=== PATIENT | male | born 1960 | race Caucasian/White ===

== ENCOUNTER 2016-12-20 11:26 | Emergency (ER) | payer OTHER ==
[~2016-12-20] VITALS: Ht 172.7 cm; Wt 72.6 kg
--- NOTE | 2016-12-20 11:32 | NUR ---
DR PEREZ AT BEDSIDE FOR EVAL
[2016-12-20 11:39] VITALS: BP 141/79
--- NOTE | 2016-12-20 11:40 | NUR ---
SUPERVISOR TELEPHONE CLERKS AT BEDSIDE
== END 2016-12-20 12:33 | disposition home or self-care (01) ==
LOC: ER 11:30
DX: M79.644 Pain in right finger(s) (principal); I10 Essential (primary) hypertension; F17.200 Nicotine dependence, unspecified, uncomplicated
CPT/HCPCS: 29130; 73140; 99284; A4606; Z7610

== ENCOUNTER 2017-05-23 09:47 | Emergency (ER) | payer OTHER ==
[~2017-05-23] VITALS: Ht 182.9 cm; Wt 88.0 kg
--- NOTE | 2017-05-23 09:55 | NUR ---
PT TO ED DT ABDOMINAL CRAMPS, NO BM SINCE THURSDAY, 03/12, NAD NOTED, VSS, RESP EVEN AND UNLABORED, WAITING FOR MD VENTURA.
--- NOTE | 2017-05-23 10:45 | NUR ---
PT TO CTSCAN
[2017-05-23] MEDS ORDERED: ONDANSETRON HCL/PF 4 MG/2 ML VIAL ONE (10:46)
[2017-05-23] MEDS ORDERED: DICYCLOMINE HCL INJ 20 MG/2 ML AMPUL IM ONE ×2 (10:46→11:00)
[2017-05-23] MEDS ORDERED: ONDANSETRON HCL/PF 4 MG/2 ML VIAL IVP ONE (11:00)
[2017-05-23 11:08] LABS: BASOPHILS % (AUTO) 0.5 % (0.0-2.0); EOSINOPHILS # (AUTO) 0.2 /CMM (0.0-0.7); EOSINOPHILS % (AUTO) 1.9 % (0.0-6.0); HEMATOCRIT 45 % (39-51); HEMOGLOBIN 14.7 g/dL (13.5-17.5); LYMPHOCYTES # (AUTO) 3.8 /CMM (0.8-4.8); LYMPHOCYTES % (AUTO) 39.4 % (20.0-44.0); MEAN CORPUSCULAR HEMOGLOBIN 29 PG (26.0-33.0); MEAN CORPUSCULAR HGB CONC 33 g/dl (31.0-36.0); MEAN CORPUSCULAR VOLUME 87 fL (80-96); MONOCYTES # (AUTO) 0.7 /CMM (0.1-1.30); MONOCYTES % (AUTO) 7.7 % (2.0-12.0); NEUTROPHILS % (AUTO) 50.5 % (43.0-81.0); PLATELET COUNT (AUTO) 260 /CMM (150-450); RDW COEFFICIENT OF VARIATION 12.9 (11.5-15.0); RED BLOOD CELL COUNT(AUTO) 5.11 MIL/uL (4.5-6.0); WHITE BLOOD COUNT (AUTO) 9.7 K/uL (4.3-11.0)
[2017-05-23 11:16] LABS: CALCIUM, SERUM 8.7 mg/dL (8.5-10.1); CREATININE 0.9 mg/dL (0.6-1.3); POTASSIUM 4.2 mmol/L (3.5-5.1)
[2017-05-23 11:22] LABS: ALBUMIN 3.5 g/dL (3.4-5.0); BILIRUBIN,DIRECT 0.1 mg/dL (0.0-0.2); BILIRUBIN,TOTAL 0.3 mg/dL (0.2-1.0); TOTAL PROTEIN, SERUM 7.2 g/dL (6.4-8.2)
--- NOTE | 2017-05-23 11:56 | NUR ---
Patient is resting comfortably in bed, siderails up. Easily aroused. VSS
[2017-05-23] MEDS ORDERED: MAGNESIUM CITRATE 296 ML BOTTLE PO ONE (12:30)
[2017-05-23] MEDS ORDERED: MAGNESIUM CITRATE 296 ML BOTTLE ONE (12:31)
[2017-05-23 12:36] VITALS: BP 135/95
== END 2017-05-23 12:46 | disposition home or self-care (01) ==
LOC: ER 09:48
DX: R10.13 Epigastric pain (principal); I10 Essential (primary) hypertension; F17.200 Nicotine dependence, unspecified, uncomplicated; Z98.890 Other specified postprocedural states
CPT/HCPCS: 36415; 80048-TC; 80076-TC; 83690-TC; 85025-TC; A4606; J0500; J2405; Z7610

== ENCOUNTER 2018-07-21 15:16 | Emergency (ER) | payer MEDICAID, OTHER ==
[~2018-07-21] VITALS: Ht 182.9 cm; Wt 89.8 kg
--- NOTE | 2018-07-21 15:20 | NUR ---
PELVIC AREA PAIN W/ URGENCY AND DYSURIA SINCE THURSDAY. PAIN LEVEL 5/10, DENIES SOB, DIZZINESS, WEAKNESS, N/V. PT IS AOX4, VSS, RESPIRATIONS EVEN AND UNLABORED. SKIN WARM TO TOUCH, DRY, INTACT. NO OTHER COMPLAINTS AT THIS TIME. READY FOR EVAL.
--- NOTE | 2018-07-21 15:40 | NUR ---
DR SHAH AT BEDSIDE
[2018-07-21] MEDS ORDERED: ACETAMINOPHEN ES 500 MG TABLET ONE (15:59)
[2018-07-21] MEDS ORDERED: ACETAMINOPHEN ES 500 MG TABLET PO ONE (16:00)
[2018-07-21] MEDS ORDERED: IBUPROFEN 600 MG TABLET PO ONE ×2 (16:00)
[2018-07-21 16:19] LABS: BASOPHILS # (AUTO) 0.1 /CMM (0.0-0.2); EOSINOPHILS % (AUTO) 2.2 % (0.0-6.0); HEMATOCRIT 46 % (39-51); LYMPHOCYTES # (AUTO) 3.2 /CMM (0.8-4.8); LYMPHOCYTES % (AUTO) 33.2 % (20.0-44.0); MEAN CORPUSCULAR HGB CONC 33 g/dl (31.0-36.0); MEAN CORPUSCULAR VOLUME 87 fL (80-96); MONOCYTES # (AUTO) 0.8 /CMM (0.1-1.30); MONOCYTES % (AUTO) 8.4 % (2.0-12.0); NEUTROPHILS # (AUTO) 5.4 /CMM (1.8-8.9); NEUTROPHILS % (AUTO) 55.2 % (43.0-81.0); PLATELET COUNT (AUTO) 237 /CMM (150-450); RED BLOOD CELL COUNT(AUTO) 5.25 MIL/uL (4.5-6.0); WHITE BLOOD COUNT (AUTO) 9.8 K/uL (4.3-11.0)
[2018-07-21 16:36] LABS: ALBUMIN 3.2 g/dL (3.4-5.0); BILIRUBIN,DIRECT 0.1 mg/dL (0.0-0.2); BILIRUBIN,TOTAL 0.3 mg/dL (0.2-1.0); CALCIUM, SERUM 8.9 mg/dL (8.5-10.1); CREATININE 0.9 mg/dL (0.6-1.3); POTASSIUM 4.2 mmol/L (3.5-5.1)
--- NOTE | 2018-07-21 16:40 | NUR ---
Patient is resting comfortably in bed. Easily aroused. VSS
--- NOTE | 2018-07-21 18:06 | NUR ---
PT RESTING COMFORTABLY READING MAGAZINE. NO COMPLAINTS AT THIS TIME. WILL CONTINUE TO MONITOR.
[2018-07-21 18:09] LABS: APPEARANCE,URINE CLEAR (CLEAR); BILIRUBIN,URINE NEGATIVE (NEGATIVE); BLOOD, URINE NEGATIVE Ery/uL (NEGATIVE); COLOR,URINE YELLOW (YELLOW); KETONES,URINE NEGATIVE (NEGATIVE); PH,URINE 6.5 (5.0-8.0); PROTEIN,URINE NEGATIVE (NEGATIVE); UGLUCOSE NEGATIVE (NEGATIVE); UROBILINOGEN,URINE 0.2 EU/dL (0.2)
[2018-07-21 18:10] LABS: LEUKOCYTE ESTERASE ,URINE NEGATIVE (NEGATIVE); NITRITE, URINE NEGATIVE (NEGATIVE)
[2018-07-21] MEDS ORDERED: IV NS 0.9% 250 ML IV ONE (18:48)
[2018-07-21] MEDS ORDERED: IOHEXOL-300 100 ML VIAL IV ONE (18:48)
[2018-07-21] MEDS ORDERED: CT SWABBABLE VALVE TRANS SET 1 EA INFUS.SET MC ONE (18:48)
--- NOTE | 2018-07-21 18:55 | NUR ---
PT TAKEN TO CT VIA ISAIAH
[2018-07-21 20:14] VITALS: BP 127/68
== END 2018-07-21 20:15 | disposition home or self-care (01) ==
LOC: ER 15:16
DX: R39.15 Urgency of urination (principal); I10 Essential (primary) hypertension; F17.200 Nicotine dependence, unspecified, uncomplicated; Z87.19 Personal history of other diseases of the digestive system; Z98.890 Other specified postprocedural states
CPT/HCPCS: 36415; 80048-TC; 80076-TC; 81000-TC; 85025-TC; 87086-TC; A4606; J7050; Q9967; Z7610

== ENCOUNTER 2018-07-30 03:27 | Emergency (ER) | END 2018-07-30 07:00 | disposition home or self-care (01) | DX: R10.30 Lower abdominal pain, unspecified (principal); R55 Syncope and collapse; F10.10 Alcohol abuse, uncomplicated; F17.200 Nicotine dependence, unspecified, uncomplicated; I10 Essential (primary) hypertension; Y90.9 Presence of alcohol in blood, level not specified; Z71.6 Tobacco abuse counseling; Z96.659 Presence of unspecified artificial knee joint; Z98.890 Other specified postprocedural states ==

== ENCOUNTER 2018-12-13 06:31 | Emergency (ER) | payer OTHER ==
[~2018-12-13] VITALS: Ht 182.9 cm; Wt 89.8 kg
[2018-12-13 06:35] VITALS: BP 157/98
[2018-12-13] MEDS ORDERED: TETRACAINE HCL/PF 0.5% UD 2 ML BOTTLE ONE (06:59)
[2018-12-13] MEDS ORDERED: FLUORESCEIN SODIUM OPHTH 1 EA STRIP ONE ×2 (07:00→07:02)
--- NOTE | 2018-12-13 07:16 | NUR ---
Patient discharged to home in stable condition. Written and verbal after care instructions given. Patient verbalizes understanding of instruction.
== END 2018-12-13 07:16 | disposition home or self-care (01) ==
LOC: ER 06:35
DX: H10.89 Other conjunctivitis (principal); I10 Essential (primary) hypertension; F10.10 Alcohol abuse, uncomplicated; F17.200 Nicotine dependence, unspecified, uncomplicated; Y90.9 Presence of alcohol in blood, level not specified; Z98.890 Other specified postprocedural states

== ENCOUNTER 2019-06-24 09:40 | Emergency (ER) | payer OTHER ==
[~2019-06-24] VITALS: Ht 182.9 cm; Wt 96.2 kg
[2019-06-24 09:46] VITALS: BP 154/90
[2019-06-24] MEDS ORDERED: FLUORESCEIN SODIUM OPHTH 1 EA STRIP ONE (10:07)
== END 2019-06-24 11:18 | disposition home or self-care (01) ==
LOC: ER 09:46
DX: S05.8X1A Other injuries of right eye and orbit, initial encounter (principal); I10 Essential (primary) hypertension; F10.10 Alcohol abuse, uncomplicated; F17.200 Nicotine dependence, unspecified, uncomplicated; Y90.9 Presence of alcohol in blood, level not specified; Z98.890 Other specified postprocedural states; W22.8XXA Striking against or struck by other objects, initial encounter; Y93.89 Activity, other specified; Y92.89 Other specified places as the place of occurrence of the external cause; Y99.8 Other external cause status

== ENCOUNTER 2019-07-28 23:31 | Emergency (ER) | payer OTHER ==
[~2019-07-28] VITALS: Ht 182.9 cm; Wt 96.2 kg
[2019-07-29] MEDS ORDERED: CLINDAMYCIN 900 MG/6 ML VIAL IM ONE (00:30)
[2019-07-29] MEDS ORDERED: CLINDAMYCIN 900 MG/6 ML VIAL ONE (00:35)
[2019-07-29 00:46] VITALS: BP 147/72
== END 2019-07-29 00:47 | disposition home or self-care (01) ==
LOC: ER 23:39
DX: K04.7 Periapical abscess without sinus (principal); I10 Essential (primary) hypertension; F17.200 Nicotine dependence, unspecified, uncomplicated; Z98.890 Other specified postprocedural states
CPT/HCPCS: 96372; 99283; J3490

== ENCOUNTER 2019-09-16 22:51 | Inpatient (IN) | payer OTHER ==
[~2019-09-16] VITALS: Ht 182.9 cm; Wt 91.7 kg
[2019-09-16] MEDS ORDERED: NITROGLYCERIN 0.4 MG/TAB BOTTLE SL ONE (23:00)
[2019-09-16] MEDS ORDERED: ASPIRIN 325 MG TABLET PO ONE (23:00)
[2019-09-16] MEDS ORDERED: ASPIRIN 325 MG TABLET ONE (23:11)
[2019-09-16] MEDS ORDERED: NITROGLYCERIN 0.4 MG/TAB BOTTLE ONE (23:11)
[2019-09-16 23:12] LABS: BASOPHILS # (AUTO) 0.1 /CMM (0.0-0.2); BASOPHILS % (AUTO) 0.6 % (0.0-2.0); EOSINOPHILS % (AUTO) 1.2 % (0.0-6.0); HEMATOCRIT 44 % (39-51); HEMOGLOBIN 14.6 g/dL (13.5-17.5); LYMPHOCYTES # (AUTO) 2.4 /CMM (0.8-4.8); LYMPHOCYTES % (AUTO) 25.9 % (20.0-44.0); MEAN CORPUSCULAR HGB CONC 33 g/dl (31.0-36.0); MEAN CORPUSCULAR VOLUME 87 fL (80-96); MONOCYTES # (AUTO) 0.6 /CMM (0.1-1.30); MONOCYTES % (AUTO) 6.9 % (2.0-12.0); NEUTROPHILS # (AUTO) 6.1 /CMM (1.8-8.9); NEUTROPHILS % (AUTO) 65.4 % (43.0-81.0); PLATELET COUNT (AUTO) 256 /CMM (150-450); RED BLOOD CELL COUNT(AUTO) 5.12 MIL/uL (4.5-6.0); WHITE BLOOD COUNT (AUTO) 9.3 K/uL (4.3-11.0)
--- NOTE | 2019-09-16 23:17 | NUR ---
PT CAME TO ER BED 1 C/O NON RADIATING LEFT SIDED CHEST PAIN. PAIN PROVOKED UPON INSPIRATION. DID NOT TAKE ANY MEDICATIONS PRIOR TO ARRIVAL. AAOX4. BREATHING EVENLY AND UNLABORED ON ROOM AIR. CONNECTED TO MODEL AND MOLD MAKER PLASTER.
[2019-09-16 23:22] LABS: CALCIUM, SERUM 9.5 mg/dL (8.5-10.1); CARBON DIOXIDE 31 mmol/L (21-32); CHLORIDE 101 mmol/L (98-107); CREATININE 0.9 mg/dL (0.6-1.3); GLUCOSE 124 mg/dL (74-106); POTASSIUM 3.9 mmol/L (3.5-5.1); SODIUM SERUM 137 mmol/L (136-145); UREA NITROGEN, BLOOD 15 mg/dL (7-18)
--- NOTE | 2019-09-16 23:33 | NUR ---
GAVE MOVESHEET TO ADMITTING FOR INSURANCE AUTH
[2019-09-16 23:35] LABS: ALANINE AMINOTRANSFERASE 36 U/L (12-78); ALBUMIN 3.6 g/dL (3.4-5.0); ALKALINE PHOSPHATASE 112 U/L (46-116); ASPARTATE AMINOTRANSFERASE 24 U/L (15-37); B-TYPE NATRIURETIC PEPTIDE 65 PG/ML (0-125); BILIRUBIN,DIRECT 0.1 mg/dL (0.0-0.2); BILIRUBIN,TOTAL 0.4 mg/dL (0.2-1.0); TOTAL PROTEIN, SERUM 7.6 g/dL (6.4-8.2)
--- NOTE | 2019-09-16 23:40 | NUR ---
CALLED NURSING SUP FOR TELE BED
[2019-09-17] MEDS ORDERED: BENA20TA9 PO (00:05)
--- NOTE | 2019-09-17 00:06 | NUR ---
REPORT GIVEN TO DANIEL MALLOY FOR MICHEL.
[2019-09-17 04:00] VITALS: BP 116/67
[2019-09-17] MEDS ORDERED: NITROGLYCERIN 0.4 MG/TAB BOTTLE SL PRN (04:00)
[2019-09-17] MEDS ORDERED: ZOLPIDEM TARTRATE 5 MG TABLET PO PRN (04:00)
[2019-09-17] MEDS ORDERED: ACETAMINOPHEN 325 MG TABLET PO PRN (04:00)
[2019-09-17] MEDS ORDERED: MORPHINE SULFATE INJ 2 MG/ML DISP.SYRIN IV PRN (04:00)
[2019-09-17] MEDS ORDERED: MAGNESIUM HYDROXIDE 30 ML UDC PO PRN (04:00)
[2019-09-17] MEDS ORDERED: MAG HYDROX/AL HYDROX/SIMETH 30 ML UDC PO PRN (04:00)
[2019-09-17] MEDS ORDERED: ONDANSETRON HCL/PF 4 MG/2 ML VIAL IVP PRN (04:00)
--- NOTE | 2019-09-17 04:15 | NUR ---
TELE/RN OPENING NOTE RECEIVED REPORT FROM PRATIMA FROM ER. PATIENT CAME IN [facility] AND WAS ABLE TO AMBULATE FROM [facility] TO BED WITH NO DIFFICULTY. PATIENT IS ON ROOM AIR AND DOES NO COMPLAIN OF ANY SOB. PATIENT ON THE MONITOR SHOWS SINUS RHYTHM WITH VARIED PVC'S. PATIENT COMPLAINS OF A 6 OUT OF 10 PAINT IN THE LEFT SHOULDER. LUNGS WERE AUSCULTATED AND CLEAR. IV ACCESS ON THE RAC #20 PATENT AND FLUSHING WITH NO SIGN OF INFILTRATION. ALL PERSONAL ITEMS WERE COUNTED FOR. PATIENT HAS MONEY WITH HIS BELONGINGS AND WISHES TO KEEP THE MONEY WITH HIM. SKIN IS INTACT. ALL SAFETY PRECAUTIONS APPLIED. WILL FOLLOW UP WITH PAIN AND CONTINUE TO MONITOR PATIENT.
--- NOTE | 2019-09-17 06:56 | NUR ---
TELE/RN PATIENT IN BED ASLEEP. CURRENTLY WITH NO SIGN OF ANY DISTRESS. PATIENT IS ON ROOM AIR WITH NO SIGN OF ANY SOB SATURATING AT 100%> PATIENT IS ON THE MONITOR WITH SINUS RHYTHM WITH PVC. CURRENTLY PATIENT DOES NOT COMPLAIN OF ANY PAIN AFTER PAIN MEDICATIONS WAS ADMINISTERED. PATIENT HAS RAC #20 S/L PATENT WITH NO SIGN OF ANY INFILTRATION. COURTNEY SAFETY PRECAUTIONS APPLIED. CALL LIGHT WITHIN REACH. ENDORSED PATIENT TO MORNING SHIFT NURSE FOR MICHEL.
[2019-09-17 07:54] LABS: CHOLESTEROL 160 mg/dL (<200); HDL CHOLESTEROL 48 mg/dL (40-60); LDL 99 mg/dL (0-99); TRIGLYCERIDES 74 mg/dL (30-150)
[2019-09-17 08:00] VITALS: BP_SYST 132; BP_DIAS 72; BP_DIAS 74
[2019-09-17] MEDS: ASPIRIN 81 MG TAB.CHEW PO SCH (08:30)
[2019-09-17] MEDS: BENAZEPRIL HCL 20 MG TABLET PO SCH (08:30)
[2019-09-17] MEDS: ATORVASTATIN 10 MG TABLET PO SCH (09:25)
[2019-09-17] MEDS: CARVEDILOL 3.125 MG TABLET PO SCH ×2 (09:25→20:07)
[2019-09-17] MEDS ORDERED: IV NS 0.9% 250 ML IV ONE (11:39)
[2019-09-17] MEDS ORDERED: CT SWABBABLE VALVE TRANS SET 1 EA INFUS.SET MC ONE (11:39)
[2019-09-17] MEDS ORDERED: IOHEXOL-350 100 ML VIAL IV ONE (11:39)
[2019-09-17 12:00] VITALS: BP 111/65
--- NOTE | 2019-09-17 12:50 | NUR ---
pt is at the CTA, a/o x4, SR, c/o mild chest pain, v/s stable, procedure explained, pt verbalized understanding, not allergic to contrast medication.
[2019-09-17] MEDS ORDERED: METOPROLOL TARTRATE INJ 5 MG/5 ML AMPUL ONE (13:24)
[2019-09-17] MEDS ORDERED: NITROGLYCERIN 0.4 MG/TAB BOTTLE ONE (13:24)
--- NOTE | 2019-09-17 14:02 | NUR ---
procedure was successful, pt tolerated it well, v/s stable, no pain.
[2019-09-17 16:00] VITALS: BP 99/63
--- NOTE | 2019-09-17 19:06 | NUR ---
MS RN NOTE RECEIVED PT IN STABLE CONDITION, A/O X4, NOTED IN BED, NO SIGNS OF SOB OR DISTRESS, NO C/O OF PAIN OR N/V. TELE MONITOR: SR. VALERIO IN RAC #[address] S/L. ALL CURRENT NEEDS ATTENDED TO. BED LOW, LOCKED, UPPER RAILS UP AND CALL LIGHT WITHIN REACH. WILL CONT. TO MONITOR.
--- NOTE | 2019-09-17 19:28 | NUR ---
NAILHEAD PUNCHER NOTE RECEIVED A PHONE CALL FROM DR. ESTES (RADIOLOGY) FOR RESULTS FROM AM CTA. MADE CLEAR TO HAVE OUR SOFTWARE ENGINEERING PROJECT MANAGER SEE RESULTS. WILL CALL DR. RAMIREZ ONCE REPORT IS READY.
--- NOTE | 2019-09-17 19:38 | NUR ---
GRANITE WORKER NOTE DR. RAMIREZ MADE AWARE OF CT ANGIOGRAM RESULT, AWAITING RESPONSE.
--- NOTE | 2019-09-17 19:40 | NUR ---
APPLICATION SPECIALIST NOTE RECEIVED NEW ORDER FROM DR. RAMIREZ. LOVENOX 1 MG/KG BID TO START NOW. WILL CARRY ORDER OUT.
--- NOTE | 2019-09-17 19:56 | NUR ---
TIME CHECKER NOTE SPOKE WITH JUDY AT PHARM TO DOSE PT LOVENOX. AWAITING NEW ORDER.
[2019-09-17 20:00] VITALS: BP 116/64
[2019-09-17] MEDS: HYDROCODONE/APAP 5/325MG 1 EACH TABLET PO PRN (20:07)
[2019-09-17] MEDS: ENOXAPARIN SODIUM 100 MG/ML DISP.SYRIN SQ SCH (20:57)
[2019-09-18] VITALS (7 sets, daily range): BP systolic 87–116; BP diastolic 48–71
--- NOTE | 2019-09-18 06:37 | NUR ---
AUTOGLAZIER NOTE PT REMAINS IN STABLE CONDITION, A/O X4, NOTED IN BED, NO SIGNS OF SOB OR DISTRESS, NO C/O OF PAIN OR N/V. TELE MONITOR: SR. VALERIO IN RAC #[address] S/L. ALL CURRENT NEEDS ATTENDED TO. BED LOW, LOCKED, UPPER RAILS UP AND CALL LIGHT WITHIN REACH. WILL CONT. TO MONITOR AND ENDORSE TO NEXT SHIFT FOR MICHEL.
[2019-09-18] MEDS: ASPIRIN 81 MG TAB.CHEW PO SCH (08:17)
[2019-09-18] MEDS: ATORVASTATIN 10 MG TABLET PO SCH (08:17)
[2019-09-18] MEDS: BENAZEPRIL HCL 20 MG TABLET PO SCH (08:17)
[2019-09-18] MEDS: CARVEDILOL 3.125 MG TABLET PO SCH (08:18)
[2019-09-18] MEDS: ENOXAPARIN SODIUM 100 MG/ML DISP.SYRIN SQ SCH (08:21)
[2019-09-18 08:24] LABS: BASOPHILS % (AUTO) 0.3 % (0.0-2.0); EOSINOPHILS % (AUTO) 1.3 % (0.0-6.0); HEMATOCRIT 43 % (39-51); HEMOGLOBIN 14.2 g/dL (13.5-17.5); LYMPHOCYTES # (AUTO) 2.3 /CMM (0.8-4.8); LYMPHOCYTES % (AUTO) 24.4 % (20.0-44.0); MEAN CORPUSCULAR HGB CONC 33 g/dl (31.0-36.0); MEAN CORPUSCULAR VOLUME 85 fL (80-96); MONOCYTES # (AUTO) 0.6 /CMM (0.1-1.30); NEUTROPHILS # (AUTO) 6.3 /CMM (1.8-8.9); PLATELET COUNT (AUTO) 239 /CMM (150-450); RED BLOOD CELL COUNT(AUTO) 5.05 MIL/uL (4.5-6.0); WHITE BLOOD COUNT (AUTO) 9.3 K/uL (4.3-11.0)
[2019-09-18] MEDS: HYDROCODONE/APAP 5/325MG 1 EACH TABLET PO PRN ×3 (08:27→21:12)
[2019-09-18 08:45] LABS: BILIRUBIN,TOTAL 0.4 mg/dL (0.2-1.0); CALCIUM, SERUM 8.6 mg/dL (8.5-10.1); CREATININE 0.8 mg/dL (0.6-1.3); MAGNESIUM 1.8 mg/dL (1.8-2.4); PHOSPHORUS 3.6 mg/dL (2.5-4.9); TOTAL PROTEIN, SERUM 6.7 g/dL (6.4-8.2)
[2019-09-18 08:46] LABS: THYROID STIMULATING HORMONE 1.395 uIU/mL (0.358-3.74)
--- NOTE | 2019-09-18 10:17 | NUR ---
40 mg Lovenox for 1030 not administrated, due to 100mg Lovenox administrated at 0900
[2019-09-18] MEDS ORDERED: ENOXAPARIN SODIUM 40 MG/0.4 ML DISP.SYRIN SQ SCH (10:30)
--- NOTE | 2019-09-18 11:20 | NUR ---
Patient will be transferred for higher level of care per dr. Hoffman.
--- NOTE | 2019-09-18 16:29 | NUR ---
per case management patient accepted by Hospital in [facility].Patient agreed with plan of care. Consent for transfer sighed by the patient.
--- NOTE | 2019-09-18 18:28 | NUR ---
Patient stable , awaiting for bed availability for transfer. D/C paperwork prepared. All needs attended. Patient informed . Will endorse to family and consumer science professor nurse for MICHEL.
--- NOTE | 2019-09-18 18:54 | NUR ---
RECEIVED CALL FROM GLASS SANDER DES: PATIENT WILL BE TRANSFERRED TO [facility] AT 499-12-30 AM. PATIENT NEEDS TO BE NPO AFTER MIDNIGHT. PATIENT WILL BE ADMITTED TO [facility] ROOM 104. PHONE NUMBER FOR REPORT IS [phone]
--- NOTE | 2019-09-18 19:45 | NUR ---
HEEL TURNER OPENING NOTES RECEIVED PATIENT FROM MORNING SHIFT, ALERT AND ORIENTED X 3. VERBALLY RESPONSIVE AND ABLE TO FOLLOW DIRECTIONS. BREATHING REGULAR AND UNLABORED ON ROOM AIR. RIGHT AC G20 AND LEFT AC G18 IV LINES PATENT AND INTACT, FLUSHING WELL WITH NO BLEEDING OR S/S OF INFILTRATION NOTED. BODY ASSESSMENT DONE, SKIN REMAINED INTACT CLEAN AND DRY. ON CARDIAC MONITORING WITH NSR AT 78bpm. BED LOW AND LOCKED ON SEMI FOWLERS POSITION. CALL LIGHT IN REACH. WILL CONTINUE TO MONITOR.
[2019-09-18] MEDS ORDERED: CARVEDILOL 3.125 MG TABLET PO SCH (21:00)
--- NOTE | 2019-09-18 21:15 | NUR ---
MACHINE ROOM OPERATOR NOTES COMPLAINED OF 7/10 LEFT SHOULDER PAIN, NORCO 5/325 GIVEN BY MOUTH. ALSO COMPLAINED OF NOT HAVING BOWEL MOVEMENT SINCE YESTERDAY, MOM 30ML GIVEN. NON-PHARMACOLOGICAL INTERVENTIONS PROVIDED. VITAL SIGNS WNL. WILL CONTINUE TO MONITOR.
[2019-09-19] MEDS: HYDROCODONE/APAP 5/325MG 1 EACH TABLET PO PRN (02:30)
--- NOTE | 2019-09-19 02:45 | NUR ---
COMMUNITY REPRESENTATIVE NOTES COMPLAINED OF 7/10 LEFT SHOULDER PAIN, NORCO 5/325 GIVEN BY MOUTH. NON-PHARMACOLOGICAL INTERVENTIONS PROVIDED. VITAL SIGNS WNL. WILL CONTINUE TO MONITOR.
[2019-09-19 04:00] VITALS: BP 108/67
[2019-09-19 05:00] VITALS: BP 108/67
[2019-09-19] MEDS ORDERED: Nitroglycerin SL (05:10)
[2019-09-19] MEDS ORDERED: ONDA4VIA23 IVP (05:10)
[2019-09-19] MEDS ORDERED: ASPI-1169 PO (05:10)
[2019-09-19] MEDS ORDERED: CARV3.122 PO (05:10)
[2019-09-19] MEDS ORDERED: ATOR10TA PO (05:10)
[2019-09-19] MEDS ORDERED: Morphine Sulfate Inj IV (05:10)
[2019-09-19 05:37] VITALS: BP 108/67
--- NOTE | 2019-09-19 05:45 | NUR ---
SEAT JOINERNATIONAL SALES CONSULTANT NOTES PATIENT PICKED-UP BY DAVID ACCOMPANIED BY 2EMT'S. REMAINED ALERT AND ORIENTED X 3. BREATHING REGULAR AND UNLABORED ON ROOM AIR. SKIN INTACT CLEAN AND DRY. DISCHARGE PACKET GIVEN TO EMT. NO COMPLAINTS OF PAIN/DISCOMFORT REPORTED. BELONGINGS SIGNED BY PATIENT. REPORT GIVEN TO FABIOLA MALLOY OF [facility]. DISCHARGE WITH STABLE CONDITION.
== END 2019-09-19 06:00 | disposition short-term general hospital (02) | DRG 198 ==
LOC: ER 22:52 → TELE1 09-17 03:15 → MEDSG1 09-18 11:13
PROVIDERS: ADMIT Registered Nurse; ATTEND Registered Nurse
DX: I25.10 Atherosclerotic heart disease of native coronary artery without angina pectoris (principal); E66.9 Obesity, unspecified; E78.5 Hyperlipidemia, unspecified; I10 Essential (primary) hypertension; R07.89 Other chest pain; Z87.11 Personal history of peptic ulcer disease; M19.90 Unspecified osteoarthritis, unspecified site; Z68.27 Body mass index [BMI] 27.0-27.9, adult; Z87.891 Personal history of nicotine dependence
CPT/HCPCS: 36415; 71045-TC; 75574; 80048-TC; 80053-TC; 80061-TC; 80076-TC; 83735-TC; 83880; 84100-TC; 84443-TC; 84484-TC; 85025-TC; 85378-TC; 87081-TC; 93307-TC; G0378; J1650; J2270; J3490; J7050; Q9967

== ENCOUNTER 2019-10-04 19:04 | Emergency (ER) | payer OTHER ==
[~2019-10-04] VITALS: Ht 182.9 cm; Wt 90.7 kg
[~2019-10-04 19:04] MED LIST: ASPI-1169 PO; ATOR10TA PO; BENA20TA9 PO; CARV3.122 PO; Morphine Sulfate Inj IV; Nitroglycerin SL; ONDA4VIA23 IVP
[2019-10-04 19:18] VITALS: BP 145/78
--- NOTE | 2019-10-04 19:25 | NUR ---
PT PRESENTED TO THE ER WITH A C/O RT EYE PAIN, DISCOMFORT, DISCHARGE NOTED. PT DENIES TRAUMA. PT HAS COPIOUS AMOUNTS OF YELLOW DISCHARGE ON EYELASH LINE.
== END 2019-10-04 19:48 | disposition home or self-care (01) ==
LOC: ER 19:08
DX: H10.89 Other conjunctivitis (principal); B99.8 Other infectious disease; F17.200 Nicotine dependence, unspecified, uncomplicated; F17.210 Nicotine dependence, cigarettes, uncomplicated; I10 Essential (primary) hypertension; Z98.890 Other specified postprocedural states; Z79.899 Other long term (current) drug therapy; Z79.82 Long term (current) use of aspirin

== ENCOUNTER 2019-12-19 02:33 | Emergency (ER) | payer OTHER ==
[~2019-12-19] VITALS: Ht 182.9 cm; Wt 95.3 kg
--- NOTE | 2019-12-19 02:50 | NUR ---
PATIENT CAME TO ER BED 9 C/O BLE EDEMA FOR THE PAST 4 DAYS. AAOX4. NO SOB. BREATHING EVENLY AND UNLABORED ON ROOM AIR. CONNECTED TO MONITOR.
[2019-12-19 04:05] VITALS: BP 127/84
--- NOTE | 2019-12-19 04:05 | NUR ---
Patient discharged to home in stable condition. Written and verbal after care instructions given. Patient verbalizes understanding of instruction.
--- NOTE | 2019-12-19 04:05 | NUR ---
Prescriptions given to patient.
== END 2019-12-19 04:06 | disposition home or self-care (01) ==
LOC: ER 02:35
DX: S80.811A Abrasion, right lower leg, initial encounter (principal); R60.0 Localized edema; L03.116 Cellulitis of left lower limb; L03.115 Cellulitis of right lower limb; I10 Essential (primary) hypertension; F17.200 Nicotine dependence, unspecified, uncomplicated; N40.0 Benign prostatic hyperplasia without lower urinary tract symptoms; Z98.890 Other specified postprocedural states; Z79.82 Long term (current) use of aspirin; Z79.899 Other long term (current) drug therapy; X58.XXXA Exposure to other specified factors, initial encounter; Y93.89 Activity, other specified; Y92.89 Other specified places as the place of occurrence of the external cause; Y99.8 Other external cause status
CPT/HCPCS: 93926-TC

== ENCOUNTER 2021-06-14 06:59 | Emergency (ER) | payer OTHER ==
[~2021-06-14] VITALS: Ht 182.9 cm; Wt 89.4 kg
--- NOTE | 2021-06-14 07:00 | NUR ---
BIBS C/O BILATERAL EYE PAIN X1 HOUR AGO. PT IS A&OX4 AND STABLE. VITAL SIGNS WITHIN NORMAL LIMITS.
--- NOTE | 2021-06-14 07:05 | NUR ---
DR DIAZ AT BEDSIDE.
[2021-06-14] MEDS ORDERED: FLUORESCEIN SODIUM OPHTH 1 EA STRIP ONE (07:11)
--- NOTE | 2021-06-14 07:14 | NUR ---
IRRIGATED EYES BILATERALLY.
--- NOTE | 2021-06-14 07:32 | NUR ---
PT TOLERATED BILATERAL IRRIGATION WELL.
[2021-06-14] MEDS ORDERED: CIPR5DRO EACHEYE (08:18)
--- NOTE | 2021-06-14 08:50 | NUR ---
VITAL SIGNS WITHIN NORMAL LIMITS. PT STABLE AND A&OX4. PT WAS GIVEN AND UNDERSTOOD DISCHARGE INSTRUCTIONS AND GIVEN PRESCRIPTION.
[2021-06-14 09:05] VITALS: BP 146/84
== END 2021-06-14 08:50 | disposition home or self-care (01) ==
LOC: ER 07:01
DX: H10.213 Acute toxic conjunctivitis, bilateral (principal); I10 Essential (primary) hypertension; F10.10 Alcohol abuse, uncomplicated; F17.200 Nicotine dependence, unspecified, uncomplicated; Y90.9 Presence of alcohol in blood, level not specified; Z98.890 Other specified postprocedural states; Z79.899 Other long term (current) drug therapy

== ENCOUNTER 2021-10-12 16:59 | Emergency (ER) | payer OTHER ==
[~2021-10-12] VITALS: Ht 182.9 cm; Wt 91.6 kg
[~2021-10-12 16:59] MED LIST changes: +CIPR5DRO EACHEYE
[2021-10-12 17:11] VITALS: BP 138/90
[2021-10-12] MEDS ORDERED: ACYC-108 PO (17:40)
[2021-10-12] MEDS ORDERED: PRED20TA PO ×2 (17:40→17:55)
--- NOTE | 2021-10-12 17:42 | NUR ---
TD PA AT BEDSIDE
[2021-10-12] MEDS ORDERED: HYDR-4275 PO (17:55)
[2021-10-12] MEDS ORDERED: VALA10002 PO (17:55)
[2021-10-12] MEDS ORDERED: KETOROLAC TROMETHAMINE INJ 60 MG/2 ML VIAL IM ONE ×2 (18:00→18:04)
[2021-10-12] MEDS ORDERED: HYDROCODONE/APAP 5/325MG TABLET PO ONE (18:00)
[2021-10-12] MEDS ORDERED: VALACYCLOVIR HCL 500 MG TABLET PO ONE (18:00)
[2021-10-12] MEDS ORDERED: predniSONE 20 MG TABLET PO ONE (18:00)
[2021-10-12] MEDS ORDERED: HYDROCODONE/APAP 5/325MG TABLET ONE (18:04)
[2021-10-12] MEDS ORDERED: VALACYCLOVIR HCL 500 MG TABLET ONE (18:04)
[2021-10-12] MEDS ORDERED: predniSONE 20 MG TABLET ONE (18:04)
--- NOTE | 2021-10-12 18:48 | NUR ---
Patient discharged to home in stable condition. Written and verbal after care instructions given. Patient verbalizes understanding of instruction.
== END 2021-10-12 18:49 | disposition home or self-care (01) ==
LOC: ER 17:00
DX: B02.9 Zoster without complications (principal); M54.10 Radiculopathy, site unspecified; I10 Essential (primary) hypertension; N40.0 Benign prostatic hyperplasia without lower urinary tract symptoms; F17.200 Nicotine dependence, unspecified, uncomplicated; Z98.890 Other specified postprocedural states; Z79.899 Other long term (current) drug therapy
CPT/HCPCS: 96372; 99284; J1885; J7512

== ENCOUNTER 2022-09-17 00:21 | Emergency (ER) | payer OTHER ==
[~2022-09-17] VITALS: Ht 182.9 cm; Wt 90.7 kg
[~2022-09-17 00:21] MED LIST changes: +HYDR-4275 PO; +PRED20TA PO; +VALA10002 PO
[2022-09-17 01:52] VITALS: BP 151/90
--- NOTE | 2022-09-17 01:54 | NUR ---
SR. HITCHCOCK DO AT PT'S BEDSIDE FOR EVAL
[2022-09-17] MEDS ORDERED: CARI350T PO (02:04)
[2022-09-17] MEDS ORDERED: HYDR-3972 PO (02:04)
[2022-09-17] MEDS ORDERED: IBUP-1957 PO (02:04)
[2022-09-17] MEDS ORDERED: PRED50TA PO (02:04)
--- NOTE | 2022-09-17 02:10 | NUR ---
Patient discharged to home in stable condition. Written and verbal after care instructions given. Patient verbalizes understanding of instruction.
== END 2022-09-17 02:11 | disposition home or self-care (01) ==
LOC: ER 00:22
DX: M62.838 Other muscle spasm (principal); I10 Essential (primary) hypertension; R51.9 Headache, unspecified; Z98.890 Other specified postprocedural states; Z79.899 Other long term (current) drug therapy; Z79.82 Long term (current) use of aspirin